=== PATIENT | female | born 1980 | race Two or more races ===

== ENCOUNTER 2017-11-01 15:08 | Emergency (ER) | payer SELFPAY | END 2017-11-01 16:42 | disposition home or self-care (01) | LOC: ER 16:42 | DX: L25.9 Unspecified contact dermatitis, unspecified cause (principal); Z88.6 Allergy status to analgesic agent | CPT/HCPCS: 99283 ==

== ENCOUNTER 2018-05-15 18:32 | Emergency (ER) | payer SELFPAY ==
[~2018-05-15] VITALS: Ht 188 cm; Wt 73.9 kg
[~2018-05-15 18:32] MED LIST: DIPH25CA58 PO; FAMO20TA5 PO; PRED-220 PO
[2018-05-15 18:50] VITALS: BP 130/60
[2018-05-15 19:13] LABS: BILIRUBIN,URINE NEGATIVE (NEG); CLARITY,URINE CLOUDY; COLOR,URINE YELLOW; NITRITE,URINE NEGATIVE (NEG); PROTEIN,URINE NEGATIVE (NEG-TRACE)
[2018-05-15 19:19] LABS: U PREG PATIENT NEGATIVE (NEG)
[2018-05-15 19:27] LABS: BACTERIA,URINE MODERATE /HPF (0-FEW); RBC,URINE 0 /HPF (0-2); SQUAMOUS EPITHELIAL CELL,UR MANY /LPF; WBC,URINE >40 /HPF (0-4)
--- NOTE | 2018-05-15 19:59 | PHYS DOC ---
Past Medical History Past Medical History: No Pertinent History Past Surgical History: No Surgical History Alcohol Use: None Drug Use: None Adult General Chief Complaint Chief Complaint: BACK PAIN - NO INJURY HPI HPI Patient is a 38 year old female who presents with upper back pain that started Friday as well as a cough and nasal congestion. She states she took some Tylenol for pain. She states that her back hurts with movement or taking deep breaths. Patient denies a fever. Patient states also her mid chest feels tight and painful but it's worse with coughing. Patient rates her pain an 8 out of 10. Patient states she also has throat pain and some ear pressure bilaterally. All the symptoms began on Friday. Patient states that when she takes a deep breath that she feels the chart pain in her chest but she has not had any nausea or vomiting. She is alert and oriented does not currently feel any dizziness or shortness of breath. Review of Systems Review of Systems Constitutional: Denies fever or chills [] Eyes: Denies change in visual acuity, redness, or eye pain [] HENT: Denies nasal congestion or sore throat [] Respiratory: cough. Denies shortness of breath [] Cardiovascular: Mid chest pain that is reproducible with movement and cough GI: Denies abdominal pain, nausea, vomiting, bloody stools or diarrhea [] : Denies dysuria or hematuria [] Musculoskeletal: Upper back pain. Denies joint pain [] Integument: Denies rash or skin lesions [] Neurologic: Denies headache, focal weakness or sensory changes [] All other systems were reviewed and found to be within normal limits, except as documented in this note. Allergies Allergies Allergies Coded Allergies Type Severity Reaction Last Updated Verified acetaminophen Allergy Intermediate VOMIT AND DIZZY 02/27/16 Yes Physical Exam Physical Exam Constitutional: Well developed, well nourished, no acute distress, non-toxic appearance. [] HENT: Normocephalic, atraumatic, bilateral external ears normal, oropharynx moist, no oral exudates, nose normal. [] Eyes: PERRLA, EOMI, conjunctiva normal, no discharge. [] Neck: Normal range of motion, no tenderness, supple, no stridor. [] Cardiovascular:Heart rate regular rhythm, no murmur [] Lungs & Thorax: Bilateral breath sounds clear to auscultation [] Abdomen: Bowel sounds normal, soft, lower mid abdominal tenderness, no masses, no pulsatile masses. [] Skin: Warm, dry, no erythema, no rash. [] Back: Upper back tenderness, or bilateral CVA tenderness. [] Extremities: No tenderness, no cyanosis, no clubbing, ROM intact, no edema. [] Neurologic: Alert and oriented X 3, normal motor function, normal sensory function, no focal deficits noted. [] Psychologic: Affect normal, judgement normal, mood normal. [] Current Patient Data Vital Signs Vital Signs Date Time Temp Pulse Resp B/P (MAP) Pulse Ox O2 Delivery O2 Flow Rate FiO2 05/15/18 18:50 97.9 89 18 130/60 (83) 96 Room Air 97.9 Lab Values Laboratory Tests Test 05/15/18 18:55 Urine Collection Type Clean catch Urine Color Yellow Urine Clarity Cloudy Urine pH 6.0 Urine Specific [place] 1.020 Urine Protein Negative mg/dL (NEG-TRACE) Urine Glucose (UA) Negative mg/dL (NEG) Urine Ketones (Stick) Negative mg/dL (NEG) Urine Blood Trace (NEG) Urine Nitrite Negative (NEG) Urine Bilirubin Negative (NEG) Urine Urobilinogen Dipstick 1.0 mg/dL (0.2 mg/dL) Urine Leukocyte Esterase Moderate (NEG) Urine RBC 0 /HPF (0-2) Urine WBC >40 /HPF (0-4) Urine Squamous Epithelial Cells Many /LPF Urine Bacteria Moderate /HPF (0-FEW) Urine Mucus Mod /LPF Urine Test Negative (NEG) EKG EKG [] Radiology/Procedures Radiology/Procedures Chest x-ray Impressions: NO ACUTE FINDINGS Course & Med Decision Making Course & Med Decision Making Patient is a 38 year old female who presents with upper back pain that started Friday as well as a cough and nasal congestion. She states she took some Tylenol for pain. She states that her back hurts with movement or taking deep breaths. Patient denies a fever. Patient states also her mid chest feels tight and painful but it's worse with coughing. Patient rates her pain an 8 out of 10. Patient states she also has throat pain and some ear pressure bilaterally. All the symptoms began on Friday. Patient states that when she takes a deep breath that she feels the chart pain in her chest but she has not had any nausea or vomiting. She is alert and oriented does not currently feel any dizziness or shortness of breath. Patient denies any urinary symptoms. Patient has lower abdominal mid tenderness with palpation but otherwise her abdomen is soft and nontender and there is no masses felt. Patient does have CVA tenderness bilaterally. Her throat is red but no exudates. Rapid strep is negative. Lungs are clear to auscultation in all lobes. Bilateral ear tympanic are pearly white in color. There are no palpable lymph nodes. The pain in her chest is reproduced with deep breaths and movement of her upper body. Patient urine looks to be infected. She will be treated with an antibiotic. She is no known drug allergies and denies smoking or drinking or using drugs. Patient states she takes no meds daily and her only past history is . And is pink warm and dry. Mucous membranes are moist. PERRLA. Patient denies a headache or any numbness or tingling. Denies shortness of air. Vital signs are 130/60, 18 respirations, 89 heart rate, 97.9 temperature, 96% on room air. Chest x-ray shows no acute findings and was read by Dr Lyons. Patient should follow-up with her doctor on Friday. Patient can also take [id number] cold medication to help with her cough and her cold symptoms. I will give her dose of dexamethasone here in the ED. [] Dragon Disclaimer Dragon Disclaimer This electronic medical record was generated, in whole or in part, using a voice recognition dictation system. Departure Departure Impression: Primary Impression: UTI (urinary tract infection) Additional Impression: Cough Disposition: HOME, SELF-CARE Condition: STABLE Referrals: NO PCP (PCP) Patient Instructions: Muscle Strain, Urinary Tract Infection Additional Instructions: FOLLOW UP WITH YOUR PRIMARY CARE DOCTOR. TAKE MEDICATIONS PRESCRIBED. Scripts Sulfamethoxazole/Trimethoprim (BACTRIM DS TABLET) 1 Each Tablet 1 TAB PO BID, #14 TAB Prov: LOLIS TRUJILLO APRN 05/15/18 Problem Qualifiers Primary Impression: UTI (urinary tract infection) Urinary tract infection type: site unspecified Hematuria presence: with hematuria Qualified Codes: N39.0 - Urinary tract infection, site not specified ; R31.9 - Hematuria, unspecified LOLIS TRUJILLO APRN May 15, 2018 19:59
[2018-05-15] MEDS ORDERED: SULF1TAB24 PO (20:02)
[2018-05-15] MEDS: DEXAMETHASONE 4 MG TABLET PO ONE (20:22)
--- NOTE | 2018-05-15 23:41 | RAD ---
PROCEDURE: CHEST PA LATERAL CLINICAL INDICATION: ER PATIENT. ATRAUMATIC CHEST PAIN, ANTERIOR AND POSTERIOR X3 DAYS. SHORTNESS OF AIR, DIZZINESS. NO PRIORS COMPARISON: None FINDINGS: Heart is normal in size. Couple of nodular opacities are seen in the left midlung zone and left lower lung zone. Otherwise, lungs are clear. No pneumothorax or effusion. Visualized bony thorax within normal limits. IMPRESSION: Couple of nodular opacities in the left lung likely calcified granulomas. Follow-up chest x-ray 6 months recommended. No acute pulmonary process. Electronically signed by: Nino Jordan DO (05/15/2018 11:38 PM) [facility]
== END 2018-05-15 20:26 ==
LOC: ER 18:32
DX: N39.0 Urinary tract infection, site not specified (principal); M54.6 Pain in thoracic spine; R05 Cough; R07.89 Other chest pain; R09.81 Nasal congestion; R10.30 Lower abdominal pain, unspecified; Z88.6 Allergy status to analgesic agent
CPT/HCPCS: 71046; 81001; 81025; 87880; 99285; J8540; 87070; 87086

== ENCOUNTER 2018-12-24 13:01 | Emergency (ER) | payer SELFPAY ==
[~2018-12-24] VITALS: Ht 157.5 cm; Wt 118.8 kg
[~2018-12-24 13:01] MED LIST changes: +SULF1TAB24 PO
[2018-12-24] MEDS ORDERED: FAMOTIDINE 20 MG/2 ML VIAL IVP ONE (13:15)
[2018-12-24] MEDS ORDERED: ASPIRIN 325 MG TABLET PO ONE (13:15)
[2018-12-24 13:31] LABS: BASO # 0.1 x10^3/uL (0.0-0.2); BASO % 1 % (0-3); EOS # 0.1 x10^3/uL (0.0-0.7); EOS % 2 % (0-3); HEMATOCRIT 41.5 % (36.0-47.0); HEMOGLOBIN 13.8 g/dL (12.0-15.5); LYMPH # 2.1 x10^3/uL (1.0-4.8); LYMPH % 26 % (24-48); MEAN CORPUSCULAR HEMOGLOBIN 26 pg (25-35); MEAN CORPUSCULAR HGB CONC 33 g/dL (31-37); MEAN CORPUSCULAR VOLUME 79 fL (79-100); MONO # 0.4 x10^3/uL (0.0-1.1); MONO % 5 % (0-9); NEUT # 5.3 x10^3uL (1.8-7.7); NEUT % 67 % (31-73); PLATELET COUNT 203 x10^3/uL (140-400); RED BLOOD COUNT 5.27 x10^6/uL (3.50-5.40); RED CELL DISTRIBUTION WIDTH 13.6 % (11.5-14.5)
--- NOTE | 2018-12-24 13:45 | RAD ---
PORTABLE CHEST 1V History: Chest pain. Comparison with May 15, 2018. Heart size is not enlarged. No evidence of pneumothorax, pleural effusion or infiltrate. The bones appear intact. Left upper lobe nodule described previously is similar. The left lower lung nodule is not as well seen on today's study. IMPRESSION: No evidence of acute infiltrate. Electronically signed by: Chaparro Moctezuma MD (12/24/2018 1:42 PM) [id number]
[2018-12-24 13:48] LABS: CALCIUM 9.2 mg/dL (8.5-10.1); CREATININE 0.6 mg/dL (0.6-1.0); GFR 113.1; POTASSIUM 3.6 mmol/L (3.5-5.1)
[2018-12-24 13:53] LABS: ALBUMIN 3.7 g/dL (3.4-5.0); ALBUMIN/GLOBULIN RATIO 0.9 (1.0-1.7); MAGNESIUM 1.8 mg/dL (1.8-2.4); TOTAL BILIRUBIN 0.3 mg/dL (0.2-1.0); TOTAL PROTEIN 7.7 g/dL (6.4-8.2)
--- NOTE | 2018-12-24 14:06 | EKG ---
[facility] [address] [place] [address] Test Date: 2018-12-24 Test Time: 13:09:27 Pat Name: JIMENA DOMINGUEZ Department: Room: Gender: F Guest Services: : 1980 Requested By: [facility] Order Number: [id number] Reading MD: Measurements Intervals [place] Rate: 73 P: 29 [place]: 146 QRS: 16 QRSD: 80 T: 15 QT: 372 QTc: 413 Interpretive Statements SINUS RHYTHM NORMAL ECG RI6.01 No previous ECG available for comparison
[2018-12-24 14:29] LABS: BILIRUBIN,URINE NEGATIVE (NEG); CLARITY,URINE CLEAR; COLOR,URINE YELLOW; NITRITE,URINE NEGATIVE (NEG); PROTEIN,URINE NEGATIVE (NEG-TRACE); UROBILINOGEN,URINE 0.2 mg/dL (0.2 mg/dL)
[2018-12-24 14:36] LABS: AMPHETAMINE/METHAMPHETAMINE NEG (NEG); BARBITURATES NEG (NEG); BENZODIAZEPINES NEG (NEG); CANNABINOIDS NEG (NEG); COCAINE NEG (NEG); METHADONE NEG (NEG); OPIATES NEG (NEG); PHENCYCLIDINE NEG (NEG)
[2018-12-24 14:46] LABS: SQUAMOUS EPITHELIAL CELL,UR FEW /LPF
[2018-12-24 14:47] LABS: BACTERIA,URINE MANY /HPF (0-FEW); RBC,URINE OCC /HPF (0-2)
--- NOTE | 2018-12-24 15:05 | PHYS DOC ---
Past Medical History Past Medical History: No Pertinent History Past Surgical History: Alcohol Use: None Drug Use: None Adult General Chief Complaint Chief Complaint: CHEST PAIN HPI HPI Patient is a 38 year old female with no significant medical history who presents to the ED today complaining of a sharp 8 out of 10 substernal intermittent chest pain nonradiating in nature that has been going on intermitte ntly for one week. Patient states his pain is worse when she is at work. She states at work she has to lift heavy items which cause more pain. She states she started a new job recently and today she could not go to work. Denies anything specifically alleviating her pain. Denies any nausea vomiting. Denies any use of control. Denies any unilateral leg pain. Denies any personal family history of PEs or DVTs. Denies any recent surgery or hospitalizations. Review of Systems Review of Systems Constitutional: Denies fever or chills [] Eyes: Denies change in visual acuity, redness, or eye pain [] HENT: Denies nasal congestion or sore throat [] Respiratory: Denies cough or shortness of breath [] Cardiovascular: Reports chest pain. GI: Denies abdominal pain, nausea, vomiting, bloody stools or diarrhea [] : Denies dysuria or hematuria [] Musculoskeletal: Denies back pain or joint pain [] Integument: Denies rash or skin lesions [] Neurologic: Denies headache, focal weakness or sensory changes [] All other systems were reviewed and found to be within normal limits, except as documented in this note. Current Medications Current Medications Current Medications Medications (Trade) Dose Ordered Sig/[facility] Start Time Stop Time Status Last Admin Dose Admin Aspirin (Bjorn Aspirin) 325 mg 1X ONCE 12/24/18 13:15 12/24/18 13:16 DC 12/24/18 13:27 325 MG Famotidine (Pepcid Vial) 20 mg 1X ONCE 12/24/18 13:15 12/24/18 13:16 DC 12/24/18 13:28 20 MG Allergies Allergies Allergies Coded Allergies Type Severity Reaction Last Updated Verified No Known Drug Allergies 12/24/18 No Physical Exam Physical Exam Constitutional: Well developed, well nourished, no acute distress, non-toxic appearance. [] HENT: Normocephalic, atraumatic, bilateral external ears normal, oropharynx moist, no oral exudates, nose normal. [] Eyes: PERRLA, EOMI, conjunctiva normal, no discharge. [] Neck: Normal range of motion, no tenderness, supple, no stridor. [] Cardiovascular:Heart rate regular rhythm, no murmur [] Lungs & Thorax: Bilateral breath sounds clear to auscultation [] Abdomen: Bowel sounds normal, soft, no tenderness, no masses, no pulsatile masses. [] Skin: Warm, dry, no erythema, no rash. [] Back: No tenderness, no CVA tenderness. [] Extremities: No tenderness, no cyanosis, no clubbing, ROM intact, no edema. [] Neurologic: Alert and oriented X 3, normal motor function, normal sensory function, no focal deficits noted. [] Psychologic: Affect normal, judgement normal, mood normal. [] Current Patient Data Vital Signs Vital Signs Date Time Temp Pulse Resp B/P (MAP) Pulse Ox O2 Delivery O2 Flow Rate FiO2 12/24/18 14:11 68 131/73 (92) 95 Room Air 12/24/18 13:11 17 12/24/18 13:03 98.3 98.3 Lab Values Laboratory Tests Test 12/24/18 13:18 12/24/18 14:23 White Blood Count 8.0 x10^3/uL (4.0-11.0) Red Blood Count 5.27 x10^6/uL (3.50-5.40) Hemoglobin 13.8 g/dL (12.0-15.5) Hematocrit 41.5 % (36.0-47.0) Mean Corpuscular Volume 79 fL (79-100) Mean Corpuscular Hemoglobin 26 pg (25-35) Mean Corpuscular Hemoglobin Concent 33 g/dL (31-37) Red Cell Distribution Width 13.6 % (11.5-14.5) Platelet Count 203 x10^3/uL (140-400) Neutrophils (%) (Auto) 67 % (31-73) Lymphocytes (%) (Auto) 26 % (24-48) Monocytes (%) (Auto) 5 % (0-9) Eosinophils (%) (Auto) 2 % (0-3) Basophils (%) (Auto) 1 % (0-3) Neutrophils # (Auto) 5.3 x10^3uL (1.8-7.7) Lymphocytes # (Auto) 2.1 x10^3/uL (1.0-4.8) Monocytes # (Auto) 0.4 x10^3/uL (0.0-1.1) Eosinophils # (Auto) 0.1 x10^3/uL (0.0-0.7) Basophils # (Auto) 0.1 x10^3/uL (0.0-0.2) Sodium Level 139 mmol/L (136-145) Potassium Level 3.6 mmol/L (3.5-5.1) Chloride Level 104 mmol/L (98-107) Carbon Dioxide Level 24 mmol/L (21-32) Anion Gap 11 (6-14) Blood Urea Nitrogen 8 mg/dL (7-20) Creatinine 0.6 mg/dL (0.6-1.0) Estimated GFR (Cockcroft-Gault) 113.1 BUN/Creatinine Ratio 13 (6-20) Glucose Level 123 mg/dL (70-99) H Calcium Level 9.2 mg/dL (8.5-10.1) Magnesium Level 1.8 mg/dL (1.8-2.4) Total Bilirubin 0.3 mg/dL (0.2-1.0) Aspartate Amino Transferase (AST) 20 U/L (15-37) Alanine Aminotransferase (ALT) 31 U/L (14-59) Alkaline Phosphatase 48 U/L (46-116) Creatine Kinase 99 U/L (26-192) Creatine Kinase MB (Mass) 1.5 ng/mL (0.0-3.6) Creatine Kinase MB Relative Index 1.5 % (0-4) Troponin I Quantitative < 0.017 ng/mL (0.000-0.055) TQ-Igb-V-Type Natriuretic Peptide 65 pg/mL (0-124) Total Protein 7.7 g/dL (6.4-8.2) Albumin 3.7 g/dL (3.4-5.0) Albumin/Globulin Ratio 0.9 (1.0-1.7) L Thyroid Stimulating Hormone (TSH) 1.056 uIU/mL (0.358-3.74) Urine Collection Type Unknown Urine Color Yellow Urine Clarity Clear Urine pH 7.0 Urine Specific [place] <=1.005 Urine Protein Negative mg/dL (NEG-TRACE) Urine Glucose (UA) Negative mg/dL (NEG) Urine Ketones (Stick) Negative mg/dL (NEG) Urine Blood Small (NEG) Urine Nitrite Negative (NEG) Urine Bilirubin Negative (NEG) Urine Urobilinogen Dipstick 0.2 mg/dL (0.2 mg/dL) Urine Leukocyte Esterase Negative (NEG) Urine RBC Occ /HPF (0-2) Urine WBC 1-4 /HPF (0-4) Urine Squamous Epithelial Cells Few /LPF Urine Bacteria Many /HPF (0-FEW) Urine Opiates Screen Neg (NEG) Urine Methadone Screen Neg (NEG) Urine Barbiturates Neg (NEG) Urine Phencyclidine Screen Neg (NEG) Urine Amphetamine/Methamphetamine Neg (NEG) Urine Benzodiazepines Screen Neg (NEG) Urine Cocaine Screen Neg (NEG) Urine Cannabinoids Screen Neg (NEG) Urine Ethyl Alcohol Neg (NEG) Laboratory Tests 12/24/18 13:18 Laboratory Tests 12/24/18 13:18 EKG EKG 13:[address] Deleon sinus rhythm heart rate 73 no STEMI Radiology/Procedures Radiology/Procedures []PROCEDURE: PORTABLE CHEST 1V PORTABLE CHEST 1V History: Chest pain. Comparison with May 15, 2018. Heart size is not enlarged. No evidence of pneumothorax, pleural effusion or infiltrate. The bones appear intact. Left upper lobe nodule described previously is similar. The left lower lung nodule is not as well seen on today's study. IMPRESSION: No evidence of acute infiltrate. Electronically signed by: Phoenix Moctezuma MD (12/24/2018 1:42 PM) [id number] DICTATED and SIGNED BY: PHOENIX MOCTEZUMA MD DATE: 12/24/18 1342 Course & Med Decision Making Course & Med Decision Making Pertinent Labs and Imaging studies reviewed. (See chart for details) This is a 38-year-old female patient presenting to the ED today complaining of substernal chest pain intermittently for week. Heart score 0 Chest x-ray is negative, EKG was negative, patient's labs including troponin are negative. She was discharged to home. Provided instructions to follow-up with PCP as well as machine brusher. Provided return precautions and discharged in stable condition. Dragon Disclaimer Dragon Disclaimer This electronic medical record was generated, in whole or in part, using a voice recognition dictation system. Departure Departure Impression: Primary Impression: Chest pain Disposition: HOME, SELF-CARE Condition: STABLE Referrals: NO PCP (PCP) follow up in 1 week Patient Instructions: Chest Pain (Nonspecific), [id number] Additional Instructions: You were evaluated in the emergency for chest pain. Your work up in the emergency room was negative. We provided you a machine brusher, follow-up with them as an outpatient. Take [id number] pain relievers as needed. Return to the emergency room at any point symptoms worsen Problem Qualifiers Primary Impression: Chest pain Chest pain type: unspecified Qualified Codes: R07.9 - Chest pain, unspecified [facility] Dec 24, 2018 15:05
[2018-12-24 15:11] VITALS: BP 133/83
== END 2018-12-24 15:24 | disposition home or self-care (01) ==
LOC: ER 13:01
DX: R07.89 Other chest pain (principal); Z98.890 Other specified postprocedural states; Z79.82 Long term (current) use of aspirin
CPT/HCPCS: 36415; 71045; 80053; 80307; 81001; 82553; 83735; 83880; 84443; 84484; 85025; 93005; 96374; 99285; J3490

== ENCOUNTER 2019-03-23 18:51 | Emergency (ER) | payer SELFPAY ==
[~2019-03-23] VITALS: Ht 157.5 cm; Wt 104.3 kg
[2019-03-23] MEDS ORDERED: ONDANSETRON PF 4 MG/2 ML VIAL. IV ONE (20:45)
[2019-03-23] MEDS ORDERED: KETOROLAC 15 MG/ML VIAL. IV ONE (20:45)
[2019-03-23 20:48] VITALS: BP 134/75
[2019-03-23 21:20] LABS: BASO # 0.1 x10^3/uL (0.0-0.2); BASO % 1 % (0-3); EOS # 0.1 x10^3/uL (0.0-0.7); EOS % 1 % (0-3); LYMPH # 2.6 x10^3/uL (1.0-4.8); LYMPH % 27 % (24-48); MEAN CORPUSCULAR HEMOGLOBIN 26 pg (25-35); MEAN CORPUSCULAR HGB CONC 33 g/dL (31-37); MEAN CORPUSCULAR VOLUME 78 fL (79-100); MONO # 0.3 x10^3/uL (0.0-1.1); MONO % 4 % (0-9); NEUT # 6.4 x10^3/uL (1.8-7.7); NEUT % 67 % (31-73); PLATELET COUNT 215 x10^3/uL (140-400); RED BLOOD COUNT 5.38 x10^6/uL (3.50-5.40); RED CELL DISTRIBUTION WIDTH 13.8 % (11.5-14.5); WHITE BLOOD COUNT 9.6 x10^3/uL (4.0-11.0)
[2019-03-23 21:38] LABS: CALCIUM 9.1 mg/dL (8.5-10.1); CREATININE 0.7 mg/dL (0.6-1.0); GFR 94.2
[2019-03-23 21:43] LABS: TOTAL BILIRUBIN 0.2 mg/dL (0.2-1.0); TOTAL PROTEIN 8.2 g/dL (6.4-8.2)
[2019-03-23 22:46] LABS: BILIRUBIN,URINE NEGATIVE (NEG); CLARITY,URINE CLEAR; COLOR,URINE YELLOW; NITRITE,URINE POSITIVE (NEG); PROTEIN,URINE NEGATIVE (NEG-TRACE); UROBILINOGEN,URINE 0.2 mg/dL (0.2 mg/dL)
[2019-03-23 22:53] LABS: BACTERIA,URINE MANY /HPF (0-FEW); SQUAMOUS EPITHELIAL CELL,UR OCC /LPF
--- NOTE | 2019-03-23 22:53 | RAD ---
STUDY: 1. Limited abdominal ultrasound 2. Complete pelvic ultrasound INDICATION: Right upper quadrant and left lower quadrant pain. COMPARISON: None. TECHNIQUE: Real-time sonographic evaluation of the right upper quadrant as well as the pelvis with both rivera scale and Doppler imaging. Both transabdominal and transvaginal technique was utilized at the pelvis. FINDINGS: LIMITED ABDOMINAL ULTRASOUND: The pancreas is poorly visualized. Somewhat increased hepatic echotexture as can be seen with hepatic steatosis. No focal parenchymal abnormality. The liver measures approximately 16 cm in length. Normal gallbladder wall thickness measuring at 3 mm. No gallstones or layering sludge visualized. No pericholecystic free fluid. Normal caliber of the common bile duct measuring 0.5 cm. The main portal vein is patent with hepatopedal flow. The right kidney measures 11.5 cm in length with normal cortical thickness and echogenicity. No hydronephrosis. COMPLETE PELVIC ULTRASOUND: The right ovary measures 2.6 x 1.5 x 1.4 cm. The left ovary measures 2.8 x 2.3 x 2.2 cm. Doppler flow is maintained to both ovaries. Simple appearing left ovarian cyst measures 1.7 x 1.7 x 1.9 cm. The uterus measures 10.1 x 4.9 x 4.2 cm. The endometrium measures 0.8 cm in thickness. No free fluid seen within the pelvis. IMPRESSION: Right upper quadrant sonogram: 1. No acute abnormality. The gallbladder is unremarkable. 2. Findings as can be seen with hepatic steatosis. Complete pelvic sonogram: 1. Left ovarian simple cyst measuring 1.7 x 1.7 x 1.9 cm. No ovarian torsion. 2. Unremarkable appearance of the uterus. The endometrium is within normal limits for thickness given age. Electronically signed by: BIMAL FLORES MD (03/23/2019 10:50 PM) [facility]
--- NOTE | 2019-03-23 23:20 | PHYS DOC ---
Past Medical History Past Medical History: UTI Past Surgical History: Additional Past Surgical Histo: EXPLORATORY LAP Alcohol Use: None Drug Use: None Adult General Chief Complaint Chief Complaint: ABDOMINAL PAIN HPI HPI Patient is a 39 year old female withmedical history who presents to the ED today complaining of 10 out of 10 left lower quadrant abdominal pain as well as right upper quadrant abdominal pain for couple days. Patient denies any nausea, vomiting, diarrhea. She states her left lower quadrant abdominal pain radiates to her back. Denies any chance she is constipated. Denies any fever, denies any chance she is . Denies any exacerbating or relieving factors to her symptoms. Review of Systems Review of Systems Constitutional: Denies fever or chills [] Eyes: Denies change in visual acuity, redness, or eye pain [] HENT: Denies nasal congestion or sore throat [] Respiratory: Denies cough or shortness of breath [] Cardiovascular: No additional information not addressed in HPI [] GI: Reports left lower quadrant abdominal pain and right upper quadrant abdominal pain, denies nausea, vomiting, bloody stools or diarrhea [] : Denies dysuria or hematuria [] Musculoskeletal: Denies back pain or joint pain [] Integument: Denies rash or skin lesions [] Neurologic: Denies headache, focal weakness or sensory changes [] All other systems were reviewed and found to be within normal limits, except as documented in this note. Current Medications Current Medications Current Medications Medications (Trade) Dose Ordered Sig/Joao Start Time Stop Time Status Last Admin Dose Admin Ketorolac Tromethamine (Toradol 15mg Vial) 15 mg 1X ONCE 03/23/19 20:45 03/23/19 20:46 DC 03/23/19 21:52 15 MG Ondansetron HCl (Zofran) 4 mg 1X ONCE 03/23/19 20:45 03/23/19 20:46 DC 03/23/19 21:52 4 MG Allergies Allergies Allergies Coded Allergies Type Severity Reaction Last Updated Verified No Known Drug Allergies 12/24/18 No Physical Exam Physical Exam Constitutional: Well developed, well nourished, no acute distress, non-toxic appearance. [] HENT: Normocephalic, atraumatic, bilateral external ears normal, oropharynx moist, no oral exudates, nose normal. [] Eyes: PERRLA, EOMI, conjunctiva normal, no discharge. [] Neck: Normal range of motion, no tenderness, supple, no stridor. [] Cardiovascular:Heart rate regular rhythm, no murmur [] Lungs & Thorax: Bilateral breath sounds clear to auscultation [] Abdomen: Bowel sounds normal, soft, no tenderness, no masses, no pulsatile masses. [] Skin: Warm, dry, no erythema, no rash. [] Back: No tenderness, no CVA tenderness. [] Extremities: No tenderness, no cyanosis, no clubbing, ROM intact, no edema. [] Neurologic: Alert and oriented X 3, normal motor function, normal sensory function, no focal deficits noted. [] Psychologic: Affect normal, judgement normal, mood normal. [] Current Patient Data Vital Signs Vital Signs Date Time Temp Pulse Resp B/P (MAP) Pulse Ox O2 Delivery O2 Flow Rate FiO2 03/23/19 20:48 65 134/75 (94) 99 Room Air 03/23/19 20:12 97.5 16 97.5 Lab Values Laboratory Tests Test 03/23/19 21:12 03/23/19 22:15 White Blood Count 9.6 x10^3/uL (4.0-11.0) Red Blood Count 5.38 x10^6/uL (3.50-5.40) Hemoglobin 14.0 g/dL (12.0-15.5) Hematocrit 42.0 % (36.0-47.0) Mean Corpuscular Volume 78 fL (79-100) L Mean Corpuscular Hemoglobin 26 pg (25-35) Mean Corpuscular Hemoglobin Concent 33 g/dL (31-37) Red Cell Distribution Width 13.8 % (11.5-14.5) Platelet Count 215 x10^3/uL (140-400) Neutrophils (%) (Auto) 67 % (31-73) Lymphocytes (%) (Auto) 27 % (24-48) Monocytes (%) (Auto) 4 % (0-9) Eosinophils (%) (Auto) 1 % (0-3) Basophils (%) (Auto) 1 % (0-3) Neutrophils # (Auto) 6.4 x10^3/uL (1.8-7.7) Lymphocytes # (Auto) 2.6 x10^3/uL (1.0-4.8) Monocytes # (Auto) 0.3 x10^3/uL (0.0-1.1) Eosinophils # (Auto) 0.1 x10^3/uL (0.0-0.7) Basophils # (Auto) 0.1 x10^3/uL (0.0-0.2) Sodium Level 140 mmol/L (136-145) Potassium Level 4.0 mmol/L (3.5-5.1) Chloride Level 104 mmol/L (98-107) Carbon Dioxide Level 25 mmol/L (21-32) Anion Gap 11 (6-14) Blood Urea Nitrogen 7 mg/dL (7-20) Creatinine 0.7 mg/dL (0.6-1.0) Estimated GFR (Cockcroft-Gault) 94.2 BUN/Creatinine Ratio 10 (6-20) Glucose Level 99 mg/dL (70-99) Calcium Level 9.1 mg/dL (8.5-10.1) Total Bilirubin 0.2 mg/dL (0.2-1.0) Aspartate Amino Transferase (AST) 31 U/L (15-37) Alanine Aminotransferase (ALT) 34 U/L (14-59) Alkaline Phosphatase 58 U/L (46-116) Total Protein 8.2 g/dL (6.4-8.2) Albumin 4.0 g/dL (3.4-5.0) Albumin/Globulin Ratio 1.0 (1.0-1.7) Lipase 169 U/L (73-393) Urine Color Yellow Urine Clarity Clear Urine pH 6.0 Urine Specific [place] 1.015 Urine Protein Negative mg/dL (NEG-TRACE) Urine Glucose (UA) Negative mg/dL (NEG) Urine Ketones (Stick) Negative mg/dL (NEG) Urine Blood Trace (NEG) Urine Nitrite Positive (NEG) Urine Bilirubin Negative (NEG) Urine Urobilinogen Dipstick 0.2 mg/dL (0.2 mg/dL) Urine Leukocyte Esterase Negative (NEG) Urine RBC 1-2 /HPF (0-2) Urine WBC 5-10 /HPF (0-4) Urine Squamous Epithelial Cells Occ /LPF Urine Bacteria Many /HPF (0-FEW) Urine Mucus Mod /LPF Laboratory Tests 03/23/19 21:12 Laboratory Tests 03/23/19 21:12 EKG EKG [] Radiology/Procedures Radiology/Procedures []PROCEDURE: PELVIS COMPLETE STUDY: 1. Limited abdominal ultrasound 2. Complete pelvic ultrasound INDICATION: Right upper quadrant and left lower quadrant pain. COMPARISON: None. TECHNIQUE: Real-time sonographic evaluation of the right upper quadrant as well as the pelvis with both rivera scale and Doppler imaging. Both transabdominal and transvaginal technique was utilized at the pelvis. FINDINGS: LIMITED ABDOMINAL ULTRASOUND: The pancreas is poorly visualized. Somewhat increased hepatic echotexture as can be seen with hepatic steatosis. No focal parenchymal abnormality. The liver measures approximately 16 cm in length. Normal gallbladder wall thickness measuring at 3 mm. No gallstones or layering sludge visualized. No pericholecystic free fluid. Normal caliber of the common bile duct measuring 0.5 cm. The main portal vein is patent with hepatopedal flow. The right kidney measures 11.5 cm in length with normal cortical thickness and echogenicity. No hydronephrosis. COMPLETE PELVIC ULTRASOUND: The right ovary measures 2.6 x 1.5 x 1.4 cm. The left ovary measures 2.8 x 2.3 x 2.2 cm. Doppler flow is maintained to both ovaries. Simple appearing left ovarian cyst measures 1.7 x 1.7 x 1.9 cm. The uterus measures 10.1 x 4.9 x 4.2 cm. The endometrium measures 0.8 cm in thickness. No free fluid seen within the pelvis. IMPRESSION: Right upper quadrant sonogram: 1. No acute abnormality. The gallbladder is unremarkable. 2. Findings as can be seen with hepatic steatosis. Complete pelvic sonogram: 1. Left ovarian simple cyst measuring 1.7 x 1.7 x 1.9 cm. No ovarian torsion. 2. Unremarkable appearance of the uterus. The endometrium is within normal limits for thickness given age. Electronically signed by: BIMAL FLORES MD (03/23/2019 10:50 PM) [facility] DICTATED and SIGNED BY: BIMAL FLORES MD DATE: 03/23/19 3129 Course & Med Decision Making Course & Med Decision Making Pertinent Labs and Imaging studies reviewed. (See chart for details) This is a 39-year-old female patient presented to the ED today with left lower quadrant abdominal pain as well as right upper quadrant abdominal pain. Patient's labs are negative for any acute findings, urine negative for infection. Right upper quadrant ultrasound was negative for any acute findings. Pelvic ultrasound noted for left ovarian cyst. Patient was provided an BRAIN SURGEON for follow-up. OTC medications recommended for her pain. Dragon Disclaimer Dragon Disclaimer This electronic medical record was generated, in whole or in part, using a voice recognition dictation system. Departure Departure Impression: Primary Impression: Left upper quadrant pain Additional Impressions: Right upper quadrant pain Ovarian cyst Disposition: HOME, SELF-CARE Condition: STABLE Referrals: NO PCP (PCP) NOBLE NASH MD Follow up in one week Patient Instructions: Abdominal Pain, [id number] Additional Instructions: You were evaluated in the emergency room for left lower quadrant abdominal pain as well as right upper quadrant abdominal pain. You have a left ovarian cyst. Follow-up with the BRAIN SURGEON provided in 1-2 weeks. You can take [id number] pain relievers as needed. Problem Qualifiers BEVERLY FOUNTAIN APRN Mar 23, 2019 23:20
--- NOTE | 2019-03-29 16:45 | HP ---
ADMIT DATE: 03/23/2019 CHIEF AND HISTORY OF PRESENT ILLNESS: This patient is a 39-year-old Thai lady who is a 6, para 5, was seen in the Emergency Room because of acute pelvic pain. She has had her last delivery by at [facility] 3 years ago and she has got 2 girls at home. She does not have any diabetes, any high blood pressure. Remained problem is pelvic pain for the last one month and she is not able to tolerate. Her last menstrual period was 03/06/2019. Her Emergency Room visit was 03/23/2019 and now she comes to the office with the same persisting pelvic pain, more so on the left side. ALLERGIES: None known. PAST MEDICAL HISTORY: Reveals no history of alcohol, not on any drugs. FAMILY HISTORY: Reveals her mother has diabetes as well as high blood pressure. REVIEW OF SYSTEMS: Essentially negative. PHYSICAL EXAMINATION: VITAL SIGNS: Being stable. She weighs 238 pounds. GENERAL: Reveals the patient is quite obese. HEAD, EYES, EARS, NOSE, THROAT: Within normal limits. LUNGS: Clear. HEART: Sounds regular sinus rhythm. ABDOMEN: Soft. PELVIC: Shows external genitalia being normal. Cervical os is closed. On bimanual exam, uterus feels bulky. There is tenderness in the left lower quadrant. No vaginal bleeding noted at the time of the examination. IMPRESSION: 1. Pelvic pain. 2. Ovarian cyst on the left side, possible pelvic adhesions. PLAN: Laparotomy, possible left side salpingo-oophorectomy. The details of the surgery, the risks and complications including any injury to the bladder or bowel, has been explained to her and the patient is willing for the operation at the present time. NOBLE NASH MD DR: LUCIAN/buzz JOB#: [id number] / [id number]
== END 2019-03-24 00:04 | disposition home or self-care (01) ==
LOC: ER 18:51
DX: N83.202 Unspecified ovarian cyst, left side (principal); Z98.890 Other specified postprocedural states
CPT/HCPCS: 36415; 76705; 76856; 80053; 81001; 83690; 85025; 96374; 96375; 99285; J1885; J2405

== ENCOUNTER 2021-05-13 13:47 | Inpatient (IN) | payer SELFPAY ==
[~2021-05-13] VITALS: Ht 188 cm; Wt 114.1 kg
[2021-05-13 14:18] LABS: BASO # 0.1 x10^3/uL (0.0-0.2); BASO % 1 % (0-3); EOS # 0.2 x10^3/uL (0.0-0.7); EOS % 2 % (0-3); HEMATOCRIT 41.9 % (36.0-47.0); HEMOGLOBIN 13.8 g/dL (12.0-15.5); LYMPH # 2.5 x10^3/uL (1.0-4.8); LYMPH % 29 % (24-48); MEAN CORPUSCULAR HEMOGLOBIN 26 pg (25-35); MEAN CORPUSCULAR HGB CONC 33 g/dL (31-37); MEAN CORPUSCULAR VOLUME 78 fL (79-100); MONO # 0.4 x10^3/uL (0.0-1.1); MONO % 5 % (0-9); NEUT # 5.5 x10^3/uL (1.8-7.7); NEUT % 63 % (31-73); PLATELET COUNT 221 x10^3/uL (140-400); RED BLOOD COUNT 5.37 x10^6/uL (3.50-5.40); RED CELL DISTRIBUTION WIDTH 14.4 % (11.5-14.5); WHITE BLOOD COUNT 8.7 x10^3/uL (4.0-11.0)
[2021-05-13 14:28] LABS: CALCIUM 8.6 mg/dL (8.5-10.1); CREATININE 0.7 mg/dL (0.6-1.0); GFR 93.2; POTASSIUM 4.6 mmol/L (3.5-5.1)
[2021-05-13 14:34] LABS: ALBUMIN 3.8 g/dL (3.4-5.0); TOTAL BILIRUBIN 0.3 mg/dL (0.2-1.0); TOTAL PROTEIN 7.5 g/dL (6.4-8.2)
--- NOTE | 2021-05-13 15:03 | RAD ---
AP chest. HISTORY: Chest pain Portable AP view was taken of the chest. There is a prominent epicardial fat pad along the left heart border. Patient's taken a poor inspiration. There are no acute infiltrates. There is no effusion. IMPRESSION: 1. No acute infiltrates. Electronically signed by: Abdifatah Guzman MD (05/13/2021 3:01 PM) [facility]
--- NOTE | 2021-05-13 15:23 | PHYS DOC ---
Past Medical History Past Medical History: UTI Additional Past Medical Histor: STRESS Past Surgical History: Other Additional Past Surgical Histo: LEFT OVARY REMOVAL Smoking Status: Current Every Day Smoker Additional Information: 1/2 PACK A DAY Alcohol Use: Occasionally Drug Use: None General Adult EDM: Chief Complaint: CHEST PAIN HPI: HPI: Patient is a 41 year old female with history obesity, tobacco use, early family history of UT who presents with substernal chest pressure that is been worse over the past week. States that it is a pressure that radiates towards her back. Gets better with rest, and worse with exertion. Associated with some shortness of breath. No fevers, chills, or cough. Never had similar symptoms in the past. States her mother had a heart attack in her 40s. She does not seek medical care and does not have a primary care provider. Review of Systems: Review of Systems: Constitutional: Denies fever or chills. [] Eyes: Denies change in visual acuity. [] HENT: Denies nasal congestion or sore throat. [] Respiratory: Denies cough. Reports shortness of breath. [] Cardiovascular: Reports chest pain, denies lower extremity edema [] GI: Denies abdominal pain, nausea, vomiting, bloody stools or diarrhea. [] : Denies dysuria. [] Musculoskeletal: Denies back pain or joint pain. [] Integument: Denies rash. [] Neurologic: Denies headache, focal weakness or sensory changes. [] Endocrine: Denies polyuria or polydipsia. [] Lymphatic: Denies swollen glands. [] Psychiatric: Denies depression or anxiety. [] Heart Score: C/O Chest Pain: Yes HEART Score for Chest Pain: HEART Score for Chest Pain Response (Comments) Value History Highly Suspicious 2 ECG Normal 0 Age < 45 0 Risk Factors >3 Risk Factors or Hx CAD 2 Troponin < Normal Limit 0 Total 4 Risk Factors: Risk Factors: DM, Current or recent (<one month) smoker, HTN, HLP, family history of CAD, obesity. Risk Scores: Score 0 - 3: 2.5% MACE over next 6 weeks - Discharge Home Score 4 - 6: 20.3% MACE over next 6 weeks - Admit for Clinical Observation Score 7 - 10: 72.7% MACE over next 6 weeks - Early Invasive Strategies Allergies: Allergies: Allergies Coded Allergies Type Severity Reaction Last Updated Verified No Known Drug Allergies 03/30/19 No Physical Exam: PE: Constitutional: Well developed, well nourished, no acute distress, non-toxic ap pearance. [] HENT: Normocephalic, atraumatic, bilateral external ears normal, oropharynx moist, no oral exudates, nose normal. [] Eyes: PERRLA, EOMI, conjunctiva normal, no discharge. [] Neck: Normal range of motion, no tenderness, supple, no stridor. [] Cardiovascular:Heart rate regular rhythm, no murmur [] Lungs & Thorax: Bilateral breath sounds clear to auscultation [] Abdomen: Bowel sounds normal, soft, no tenderness, no masses, no pulsatile masses. [] Skin: Warm, dry, no erythema, no rash. [] Back: No tenderness, no CVA tenderness. [] Extremities: No tenderness, no cyanosis, no clubbing, ROM intact, no edema. [] Neurologic: Alert and oriented X 3, normal motor function, normal sensory function, no focal deficits noted. [] Psychologic: Affect normal, judgement normal, mood normal. [] Current Patient Data: Labs: Laboratory Tests Test 05/13/21 14:05 05/13/21 14:16 White Blood Count 8.7 x10^3/uL (4.0-11.0) Red Blood Count 5.37 x10^6/uL (3.50-5.40) Hemoglobin 13.8 g/dL (12.0-15.5) Hematocrit 41.9 % (36.0-47.0) Mean Corpuscular Volume 78 fL (79-100) L Mean Corpuscular Hemoglobin 26 pg (25-35) Mean Corpuscular Hemoglobin Concent 33 g/dL (31-37) Red Cell Distribution Width 14.4 % (11.5-14.5) Platelet Count 221 x10^3/uL (140-400) Neutrophils (%) (Auto) 63 % (31-73) Lymphocytes (%) (Auto) 29 % (24-48) Monocytes (%) (Auto) 5 % (0-9) Eosinophils (%) (Auto) 2 % (0-3) Basophils (%) (Auto) 1 % (0-3) Neutrophils # (Auto) 5.5 x10^3/uL (1.8-7.7) Lymphocytes # (Auto) 2.5 x10^3/uL (1.0-4.8) Monocytes # (Auto) 0.4 x10^3/uL (0.0-1.1) Eosinophils # (Auto) 0.2 x10^3/uL (0.0-0.7) Basophils # (Auto) 0.1 x10^3/uL (0.0-0.2) Sodium Level 137 mmol/L (136-145) Potassium Level 4.6 mmol/L (3.5-5.1) Chloride Level 103 mmol/L (98-107) Carbon Dioxide Level 25 mmol/L (21-32) Anion Gap 9 (6-14) Blood Urea Nitrogen 10 mg/dL (7-20) Creatinine 0.7 mg/dL (0.6-1.0) Estimated GFR (Cockcroft-Gault) 93.2 BUN/Creatinine Ratio 14 (6-20) Glucose Level 145 mg/dL (70-99) H Calcium Level 8.6 mg/dL (8.5-10.1) Total Bilirubin 0.3 mg/dL (0.2-1.0) Aspartate Amino Transferase (AST) 25 U/L (15-37) Alanine Aminotransferase (ALT) 47 U/L (14-59) Alkaline Phosphatase 61 U/L (46-116) Troponin I Quantitative < 0.017 ng/mL (0.000-0.055) Total Protein 7.5 g/dL (6.4-8.2) Albumin 3.8 g/dL (3.4-5.0) Albumin/Globulin Ratio 1.0 (1.0-1.7) POC Urine HCG, Qualitative Hcg negative (Negative) Laboratory Tests 05/13/21 14:05 Laboratory Tests 05/13/21 14:05 Vital Signs: Vital Signs Date Time Temp Pulse Resp B/P (MAP) Pulse Ox O2 Delivery O2 Flow Rate FiO2 05/13/21 13:55 98.1 75 18 177/79 (111) 99 Room Air 98.1 EKG: EKG: [] Sinus rhythm. Rate 72. There is no U wave. No acute ST segment changes. No Q waves. No T wave inversions. Radiology/Procedures: Radiology/Procedures: [] Impression: [facility] [address] [place] [address] IMAGING REPORT Signed PATIENT: JIMENA DOMINGUEZ IACCOUNT: [id number] : 1980 LOCATION: ER AGE: 41 SEX: F EXAM STATUS: REG ER ORD. PHYSICIAN: SHASTA VERAS MD REASON: chest pain PROCEDURE: CHEST AP ONLY AP chest. HISTORY: Chest pain Portable AP view was taken of the chest. There is a prominent epicardial fat pad along the left heart border. Patient's taken a poor inspiration. There are no acute infiltrates. There is no effusion. IMPRESSION: 1. No acute infiltrates. Electronically signed by: Abdifatah Guzman MD (05/13/2021 3:01 PM) [facility] DICTATED and SIGNED BY: ABDIFATAH GUZMAN MD DATE: 05/13/21 [id number] 0 Course & Med Decision Making: Course & Med Decision Making Pertinent Labs and Imaging studies reviewed. (See chart for details) Patient is 41-year-old female with history of smoking, obesity, early family history of UT who presents with exertional substernal chest pressure for the past week. EKG nonischemic. Troponin negative. Chest x-ray without acute process. Labs otherwise noncontributory. HEART score = 4. She has no outpatient follow-up, feel that she would benefit from an admission for further evaluation and restratification of her chest pain. Dragon Disclaimer: Dragon Disclaimer: This electronic medical record was generated, in whole or in part, using a voice recognition dictation system. Departure Departure Impression: Primary Impression: Chest pain Disposition: ADMITTED INPATIENT Admitting Physician: ANSELMO [place]) Condition: STABLE Referrals: NO PCP (PCP) SHASTA VERAS MD May 13, 2021 15:23
[2021-05-13] MEDS ORDERED: oxyCODONE/APAP 5/325 1 TAB TABLET PO PRN (16:45)
[2021-05-13] MEDS ORDERED: ELECTROLYTE (NON-ICU) PROTOCOL. MC PRN (16:45)
[2021-05-13] MEDS ORDERED: ACETAMINOPHEN 325 MG TABLET. PO PRN (16:45)
--- NOTE | 2021-05-13 16:49 | PDOC1 ---
History and Physical Date of Service: DOS: DATE: 05/13/21 TIME: 16:36 Chief Complaint: Problems: (1) Chest pain Chief Complain: Chest pain History of Present Illness: HPI: Patient is a 41-year-old female presented to the emergency room today due to 1 week history of chest pain. 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 She says this is been very stressful for her especially during times they are very rushed. Says she is noticed chest pain during stressful times. Says pain radiates to her back gets better with rest. Mild shortness of breath but she is a tobacco smoker. Denies any sort of past medical history. Not on any daily medications. Notably reports that her mother had an OR in her 40s. When I evaluated her side her chest pain is still present. Denying any sort of dizziness, vision change, headache, shortness breath, abdominal pain, dysuria, joint pain. Past Medical/Surgical History: PMH/PSH: Reports history of UTIs. No daily medications or other medical history Allergies: Allergies: Coded Allergies: No Known Drug Allergies (Unverified , 03/30/19) Family History: Family History: Reviewed patient denies any known family history Social History: Social History: Current half pack per day tobacco smoker. Denies alcohol drug use Current Medications: Current Medications Active Scripts Active Famotidine 20 Mg Tablet 20 Mg PO DAILY ROS: Review of Systems Review of System Unless noted in HPI 14 point review of systems was negative Physical Exam: Vital Signs: Vital Signs Date Time Temp Pulse Resp B/P (MAP) Pulse Ox O2 Delivery O2 Flow Rate FiO2 05/13/21 16:00 60 27 125/60 (81) 97 Room Air 05/13/21 13:55 98.1 98.1 Physcial Exam: GEN: No apparent distress. Alert and oriented HEENT: Normal cephalic, atraumatic, external auditory canals are patent EYES: Extraocular muscles are intact, pupil are equally round and reactive to light and accommodation MUSCULOSKELETAL: Well developed , well nourished, good range of motion ENDOCRINE: No thyromegaly was palpated LYMPHATICS: No cervical chain or axillary nodes were noted HEMATOPOIETIC: No bruising NECK: Supple, no JVD, no thyromegaly was noted LUNGS: Clear to auscultation in all lung rivera without rhonchi or wheezing HEART: RRR, S1, S2 present. Peripheral pulses intact, no obvious murmurs noted ABDOMEN: Soft, nontender. Positive bowel sounds, no organomegaly, normal bowel sounds EXTREMITIES: Without clubbing, cyanosis, or edema. Pedal pulses intact. Negative Homans sign NEUROLOGIC: Normal speech and tone. A&O x 3, moves all extremities, no obvious focal deficits PSYCHIATRIC: Normal affect, normal mood. Stable SKIN: No ulcerations or rashes, good skin turgor, no jaundice VASCULAR: Good capillary refill, neurovascular bundle appears to be intact Labs: Labs: Laboratory Tests Test 05/13/21 14:05 05/13/21 14:16 White Blood Count 8.7 x10^3/uL (4.0-11.0) Red Blood Count 5.37 x10^6/uL (3.50-5.40) Hemoglobin 13.8 g/dL (12.0-15.5) Hematocrit 41.9 % (36.0-47.0) Mean Corpuscular Volume 78 fL (79-100) Mean Corpuscular Hemoglobin 26 pg (25-35) Mean Corpuscular Hemoglobin Concent 33 g/dL (31-37) Red Cell Distribution Width 14.4 % (11.5-14.5) Platelet Count 221 x10^3/uL (140-400) Neutrophils (%) (Auto) 63 % (31-73) Lymphocytes (%) (Auto) 29 % (24-48) Monocytes (%) (Auto) 5 % (0-9) Eosinophils (%) (Auto) 2 % (0-3) Basophils (%) (Auto) 1 % (0-3) Neutrophils # (Auto) 5.5 x10^3/uL (1.8-7.7) Lymphocytes # (Auto) 2.5 x10^3/uL (1.0-4.8) Monocytes # (Auto) 0.4 x10^3/uL (0.0-1.1) Eosinophils # (Auto) 0.2 x10^3/uL (0.0-0.7) Basophils # (Auto) 0.1 x10^3/uL (0.0-0.2) Sodium Level 137 mmol/L (136-145) Potassium Level 4.6 mmol/L (3.5-5.1) Chloride Level 103 mmol/L (98-107) Carbon Dioxide Level 25 mmol/L (21-32) Anion Gap 9 (6-14) Blood Urea Nitrogen 10 mg/dL (7-20) Creatinine 0.7 mg/dL (0.6-1.0) Estimated GFR (Cockcroft-Gault) 93.2 BUN/Creatinine Ratio 14 (6-20) Glucose Level 145 mg/dL (70-99) Calcium Level 8.6 mg/dL (8.5-10.1) Total Bilirubin 0.3 mg/dL (0.2-1.0) Aspartate Amino Transf (AST/SGOT) 25 U/L (15-37) Alanine Aminotransferase (ALT/SGPT) 47 U/L (14-59) Alkaline Phosphatase 61 U/L (46-116) Troponin I Quantitative < 0.017 ng/mL (0.000-0.055) Total Protein 7.5 g/dL (6.4-8.2) Albumin 3.8 g/dL (3.4-5.0) Albumin/Globulin Ratio 1.0 (1.0-1.7) Bedside Urine HCG, Qualitative Hcg negative (Negative) Laboratory Tests Test 05/13/21 14:05 05/13/21 14:16 White Blood Count 8.7 x10^3/uL (4.0-11.0) Red Blood Count 5.37 x10^6/uL (3.50-5.40) Hemoglobin 13.8 g/dL (12.0-15.5) Hematocrit 41.9 % (36.0-47.0) Mean Corpuscular Volume 78 fL (79-100) Mean Corpuscular Hemoglobin 26 pg (25-35) Mean Corpuscular Hemoglobin Concent 33 g/dL (31-37) Red Cell Distribution Width 14.4 % (11.5-14.5) Platelet Count 221 x10^3/uL (140-400) Neutrophils (%) (Auto) 63 % (31-73) Lymphocytes (%) (Auto) 29 % (24-48) Monocytes (%) (Auto) 5 % (0-9) Eosinophils (%) (Auto) 2 % (0-3) Basophils (%) (Auto) 1 % (0-3) Neutrophils # (Auto) 5.5 x10^3/uL (1.8-7.7) Lymphocytes # (Auto) 2.5 x10^3/uL (1.0-4.8) Monocytes # (Auto) 0.4 x10^3/uL (0.0-1.1) Eosinophils # (Auto) 0.2 x10^3/uL (0.0-0.7) Basophils # (Auto) 0.1 x10^3/uL (0.0-0.2) Sodium Level 137 mmol/L (136-145) Potassium Level 4.6 mmol/L (3.5-5.1) Chloride Level 103 mmol/L (98-107) Carbon Dioxide Level 25 mmol/L (21-32) Anion Gap 9 (6-14) Blood Urea Nitrogen 10 mg/dL (7-20) Creatinine 0.7 mg/dL (0.6-1.0) Estimated GFR (Cockcroft-Gault) 93.2 BUN/Creatinine Ratio 14 (6-20) Glucose Level 145 mg/dL (70-99) Calcium Level 8.6 mg/dL (8.5-10.1) Total Bilirubin 0.3 mg/dL (0.2-1.0) Aspartate Amino Transf (AST/SGOT) 25 U/L (15-37) Alanine Aminotransferase (ALT/SGPT) 47 U/L (14-59) Alkaline Phosphatase 61 U/L (46-116) Troponin I Quantitative < 0.017 ng/mL (0.000-0.055) Total Protein 7.5 g/dL (6.4-8.2) Albumin 3.8 g/dL (3.4-5.0) Albumin/Globulin Ratio 1.0 (1.0-1.7) Bedside Urine HCG, Qualitative Hcg negative (Negative) Assessment/Plan Assessment/Plan Unstable angina, anxiety -Patient with 1 week history of ongoing chest pain in setting of starting new stressful job -Presented to emergency room work-up normal as far -Continue to trend troponin -Consult cardiology. Will hold off on ordering an echo or stress test unitl they are able to evaluate her -We will try some as needed Ativan for anxiety -DVT prophylaxis -Cardiac diet for now -Plan of care discussed with bedside RN. Spent approximately 12 minutes providing smoking cessation counseling in this patient. Justifications for Admission Other Justification NYLA GARCIA MD May 13, 2021 16:49
[2021-05-13 17:02] VITALS: BP 123/59
[2021-05-13 17:22] LABS: CHOLESTEROL/HDL RATIO 6.5
[2021-05-13 19:45] VITALS: BP 115/66
[2021-05-13] MEDS: SENNOSIDES/DOCUSATE 8.6/50MG TABLET. PO SCH (21:00)
[2021-05-13] MEDS: oxyCODONE/APAP 5/325 1 TAB TABLET PO PRN (22:55)
[2021-05-13 23:00] VITALS: BP 127/59
--- NOTE | 2021-05-14 01:12 | EKG ---
[facility] [address] [place] [address] Test Date: 2021-05-13 Test Time: 14:00:30 Pat Name: JIMENA DOMINGUEZ Department: Room: [facility] Gender: F [employer]: : 1980 Requested By: SHASTA VERAS Order Number: [id number] Reading MD: Ascencion Wrihgt MD Measurements Intervals [place] Rate: 72 P: DE: QRS: -1 QRSD: 82 T: 31 QT: 392 QTc: 431 Interpretive Statements SR NON-SPECIFIC ST/T CHANGES Electronically Signed On 05-14-2021 8:48:11 CDT by Ascencion Wright MD
[2021-05-14 03:05] VITALS: BP 109/58
[2021-05-14] MEDS: oxyCODONE/APAP 5/325 1 TAB TABLET PO PRN ×2 (03:46→08:51)
[2021-05-14 07:00] VITALS: BP 122/78
[2021-05-14] MEDS: SENNOSIDES/DOCUSATE 8.6/50MG TABLET. PO SCH (08:39)
[2021-05-14] MEDS ORDERED: FAMOTIDINE 20 MG TABLET. PO SCH (09:00)
--- NOTE | 2021-05-14 09:57 | PDOC2 ---
CLARISA BELTRAN SPORTS DEVELOPMENT OFFICER 05/14/21 0957: CARDIAC CONSULT DATE OF CONSULT Date of Consult DATE: 05/14/21 TIME: 09:52 REASON FOR CONSULT Reason for Consult: Chest pain REFERRING PHYSICIAN Referring Physician: Dr. Finn SOURCE Source: Chart review, Patient HISTORY OF PRESENT ILLNESS HISTORY OF PRESENT ILLNESS This is a 41 yo female who presented secondary to week long history of chest pressure. Pain is constant. Is worse with certain movements, deep breathing, and with applying pressure to the central chest. No associated dizziness, diaphoresis, or palpitations. No recent illness or injury. No previous cardiac workup. PAST MEDICAL HISTORY Cardiovascular: No pertinent hx Pulmonary: No pertinent hx Renal/: No pertinent hx Endocrine: No pertinent hx PAST SURGICAL HISTORY Past Surgical History: Other (oophrectomy ) FAMILY HISTORY Family History: Heart Disease SOCIAL HISTORY Smoke: 1 pack per day ALCOHOL: none Drugs: None Lives: with Family CURRENT MEDICATIONS CURRENT MEDICATIONS Current Medications Medications (Trade) Dose Ordered Sig/Joao Route PRN Reason Start Time Stop Time Status Last Admin Dose Admin Oxycodone/ Acetaminophen (Percocet 5/325) 2 tab PRN Q4HRS PRN PO MODERATE PAIN, SEVERE PAIN 05/13/21 16:45 05/14/21 08:51 ALLERGIES ALLERGIES: Coded Allergies: No Known Drug Allergies (Unverified , 03/30/19) ROS Review of System 14 point ROS conducted with pertinent positives noted above in HPI PHYSICAL EXAM General: Alert, Oriented X3, Cooperative, No acute distress HEENT: Atraumatic Lungs: Clear to auscultation, Other (pain with palpation of central chest ) Heart: Regular rate Abdomen: Soft, Other (obese) Extremities: No edema, Normal pulses Skin: No significant lesion Neuro: Normal speech, Sensation intact Psych/Mental Status: Mental status NL, Mood NL MUSCULOSKELETAL: No deformity VITALS/I&O VITALS/I&O: Vital Signs Date Time Temp Pulse Resp B/P (MAP) Pulse Ox O2 Delivery O2 Flow Rate FiO2 05/14/21 08:51 18 Room Air 05/14/21 07:00 98.3 64 122/78 (93) 98 98.3 I & O 05/13/21 05/13/21 05/14/21 15:00 23:00 07:00 Intake Total 300 ml 360 ml Balance 300 ml 360 ml LABS Lab: Laboratory Tests Test 05/13/21 14:05 05/13/21 14:16 05/13/21 16:58 05/13/21 16:59 White Blood Count 8.7 x10^3/uL (4.0-11.0) Red Blood Count 5.37 x10^6/uL (3.50-5.40) Hemoglobin 13.8 g/dL (12.0-15.5) Hematocrit 41.9 % (36.0-47.0) Mean Corpuscular Volume 78 fL (79-100) L Mean Corpuscular Hemoglobin 26 pg (25-35) Mean Corpuscular Hemoglobin Concent 33 g/dL (31-37) Red Cell Distribution Width 14.4 % (11.5-14.5) Platelet Count 221 x10^3/uL (140-400) Neutrophils (%) (Auto) 63 % (31-73) Lymphocytes (%) (Auto) 29 % (24-48) Monocytes (%) (Auto) 5 % (0-9) Eosinophils (%) (Auto) 2 % (0-3) Basophils (%) (Auto) 1 % (0-3) Neutrophils # (Auto) 5.5 x10^3/uL (1.8-7.7) Lymphocytes # (Auto) 2.5 x10^3/uL (1.0-4.8) Monocytes # (Auto) 0.4 x10^3/uL (0.0-1.1) Eosinophils # (Auto) 0.2 x10^3/uL (0.0-0.7) Basophils # (Auto) 0.1 x10^3/uL (0.0-0.2) Sodium Level 137 mmol/L (136-145) Potassium Level 4.6 mmol/L (3.5-5.1) Chloride Level 103 mmol/L (98-107) Carbon Dioxide Level 25 mmol/L (21-32) Anion Gap 9 (6-14) Blood Urea Nitrogen 10 mg/dL (7-20) Creatinine 0.7 mg/dL (0.6-1.0) Estimated GFR (Cockcroft-Gault) 93.2 BUN/Creatinine Ratio 14 (6-20) Glucose Level 145 mg/dL (70-99) H Calcium Level 8.6 mg/dL (8.5-10.1) Total Bilirubin 0.3 mg/dL (0.2-1.0) Aspartate Amino Transferase (AST) 25 U/L (15-37) Alanine Aminotransferase (ALT) 47 U/L (14-59) Alkaline Phosphatase 61 U/L (46-116) Troponin I Quantitative < 0.017 ng/mL (0.000-0.055) < 0.017 ng/mL (0.000-0.055) Total Protein 7.5 g/dL (6.4-8.2) Albumin 3.8 g/dL (3.4-5.0) Albumin/Globulin Ratio 1.0 (1.0-1.7) POC Urine HCG, Qualitative Hcg negative (Negative) Triglycerides Level 143 mg/dL (0-150) Cholesterol Level 203 mg/dL (0-200) H LDL Cholesterol, Calculated 143 mg/dL (0-100) H VLDL Cholesterol, Calculated 29 mg/dL (0-40) Non-HDL Cholesterol Calculated 172 mg/dL (0-129) H HDL Cholesterol 31 mg/dL (40-60) L Cholesterol/HDL Ratio 6.5 Test 05/13/21 19:20 Troponin I Quantitative < 0.017 ng/mL (0.000-0.055) Laboratory Tests 05/13/21 14:05 Laboratory Tests 05/13/21 14:05 ASSESSMENT/PLAN ASSESSMENT/PLAN 1. Chest pain, atypical; AMI ruled out. EKG shows SR with nonspecific ST/T changes 2. Obesity 3. Tobaccoism; discussed/encourage cessation Recommendations Echo to assess LV systolic function Lipids panel Could consider outpatient ischemic evaluation if pain recurrent Supportive care If echo WNL, may discharge from a CV standpoint. NISA RODRIGUEZ MD 05/14/21 1714: CLARISA BELTRAN APRN May 14, 2021 09:57 NISA RODRIGUEZ MD May 14, 2021 17:14
[2021-05-14 10:40] VITALS: BP 137/70
--- NOTE | 2021-05-14 12:13 | PDOC ---
[employer] PROGRESS NOTE Date of Service DOS: DATE: 05/14/21 TIME: 12:04 Chief Complaint Chief Complaint Chest pain Anxiety Tobacco use Obesity History of Present Illness History of Present Illness 05/14 Patient seen and examined at bedside Patient states her chest pain is improved, reproducible with palpation Pt states she has been feeling anxious d/t recent change in work schedule overnight, requested note Charts reviewed Discussed with RN and SW Vitals/I&O Vitals/I&O: Vital Signs Date Time Temp Pulse Resp B/P (MAP) Pulse Ox O2 Delivery O2 Flow Rate FiO2 05/14/21 10:40 98.5 64 18 137/70 (92) 99 Room Air 98.5 I & O 05/13/21 05/13/21 05/14/21 15:00 23:00 07:00 Intake Total 300 ml 360 ml Balance 300 ml 360 ml Physical Exam General: Alert, Oriented X3, Cooperative, No acute distress Heart: Regular rate, Normal S1, Normal S2 Lungs: Clear Abdomen: Normal bowel sounds, Soft, No tenderness Extremities: No clubbing, No cyanosis Skin: No rashes, No breakdown Labs Labs: Laboratory Tests Test 05/13/21 14:05 05/13/21 14:16 05/13/21 16:58 05/13/21 16:59 White Blood Count 8.7 x10^3/uL (4.0-11.0) Red Blood Count 5.37 x10^6/uL (3.50-5.40) Hemoglobin 13.8 g/dL (12.0-15.5) Hematocrit 41.9 % (36.0-47.0) Mean Corpuscular Volume 78 fL (79-100) Mean Corpuscular Hemoglobin 26 pg (25-35) Mean Corpuscular Hemoglobin Concent 33 g/dL (31-37) Red Cell Distribution Width 14.4 % (11.5-14.5) Platelet Count 221 x10^3/uL (140-400) Neutrophils (%) (Auto) 63 % (31-73) Lymphocytes (%) (Auto) 29 % (24-48) Monocytes (%) (Auto) 5 % (0-9) Eosinophils (%) (Auto) 2 % (0-3) Basophils (%) (Auto) 1 % (0-3) Neutrophils # (Auto) 5.5 x10^3/uL (1.8-7.7) Lymphocytes # (Auto) 2.5 x10^3/uL (1.0-4.8) Monocytes # (Auto) 0.4 x10^3/uL (0.0-1.1) Eosinophils # (Auto) 0.2 x10^3/uL (0.0-0.7) Basophils # (Auto) 0.1 x10^3/uL (0.0-0.2) Sodium Level 137 mmol/L (136-145) Potassium Level 4.6 mmol/L (3.5-5.1) Chloride Level 103 mmol/L (98-107) Carbon Dioxide Level 25 mmol/L (21-32) Anion Gap 9 (6-14) Blood Urea Nitrogen 10 mg/dL (7-20) Creatinine 0.7 mg/dL (0.6-1.0) Estimated GFR (Cockcroft-Gault) 93.2 BUN/Creatinine Ratio 14 (6-20) Glucose Level 145 mg/dL (70-99) Calcium Level 8.6 mg/dL (8.5-10.1) Total Bilirubin 0.3 mg/dL (0.2-1.0) Aspartate Amino Transf (AST/SGOT) 25 U/L (15-37) Alanine Aminotransferase (ALT/SGPT) 47 U/L (14-59) Alkaline Phosphatase 61 U/L (46-116) Troponin I Quantitative < 0.017 ng/mL (0.000-0.055) < 0.017 ng/mL (0.000-0.055) Total Protein 7.5 g/dL (6.4-8.2) Albumin 3.8 g/dL (3.4-5.0) Albumin/Globulin Ratio 1.0 (1.0-1.7) Bedside Urine HCG, Qualitative Hcg negative (Negative) Triglycerides Level 143 mg/dL (0-150) Cholesterol Level 203 mg/dL (0-200) LDL Cholesterol, Calculated 143 mg/dL (0-100) VLDL Cholesterol, Calculated 29 mg/dL (0-40) Non-HDL Cholesterol Calculated 172 mg/dL (0-129) HDL Cholesterol 31 mg/dL (40-60) Cholesterol/HDL Ratio 6.5 Test 05/13/21 19:20 Troponin I Quantitative < 0.017 ng/mL (0.000-0.055) Review of Systems Review of Systems: Pt acknowledges feelings of anxiousness ROS otherwise negative Assessment and Plan Assessmemt and Plan Problems Medical Problems: (1) Chest pain Status: Acute Chest pain Anxiety Tobacco use Obesity Plan Cardiology input appreciated Possible discharge today, per cardiology approval Added Medrol Dose Pack Added Prozac Rx note for work and schedule restriction provided Continue DVT prophylaxis Restart home meds as indicated PT/OT Full code Disposition: Possible discharge today, as noted above Comment Review of Relevant I have reviewed the following items danyel (where applicable) has been applied. Medications: Current Medications Medications (Trade) Dose Ordered Sig/Joao Route PRN Reason Start Time Stop Time Status Last Admin Dose Admin Oxycodone/ Acetaminophen (Percocet 5/325) 2 tab PRN Q4HRS PRN PO MODERATE PAIN, SEVERE PAIN 05/13/21 16:45 05/14/21 08:51 Justifications for Admission Other Justification CARLIN MERINO III DO May 14, 2021 12:13
[2021-05-14] MEDS ORDERED: FLUO20CA16 PO (12:54)
--- NOTE | 2021-05-14 13:03 | DS ---
DATE OF DISCHARGE: 05/14/2021 ADMISSION DIAGNOSIS: Chest pain. DISCHARGE DIAGNOSES: Probable atypical chest pain, anxiety, tobacco abuse, obesity. CONSULTATIONS: Cardiology. PROCEDURES: None. HOSPITAL COURSE: The patient is a pleasant, middle-aged female who presented with chest pain. We admitted the patient, did serial enzymes, serial EKGs. We consulted Cardiology. So far as of this morning, her workup is negative. Cardiology has seen her and requested to get an echocardiogram, but clinically she is doing well and wants to go home. She admits she is under a lot of stress because her job at [employer] wants her to work nightshifts beyond midnight. She also wants something for anxiety and I gave her a prescription for Prozac 20 mg a day and of note, telling her boss to please not work her past 11:00. We will go ahead and discharge if okay with Cardiology this afternoon. DISPOSITION: Home. ACTIVITY: As tolerated. DIET: Low-sodium. MEDICATIONS: Prozac 20 mg a day and Pepcid 20 mg p.o. b.i.d. TOTAL TIME: [address]: Cali TID: [id number]
--- NOTE | 2021-05-14 14:14 | CARD ---
MR#: [id number] Date of Study: 05/14/2021 Ordering Physician: CLARIAS BELTRAN, Referring Physician: CLARISA BELTRAN, Page: Luke Arthur [facility] APPROVED REPORT EXAM: Two-dimensional and M-mode echocardiogram with Doppler and color Doppler. Other Information Quality : FairHR: 60bpm Rhythm : NSRTechnically limited study due to body habitus. INDICATION Chest Pain RISK FACTORS Obesity Smoking 2D DIMENSIONS Left Atrium(2D)3.8 (1.6-4.0cm)IVSd1.1 (0.7-1.1cm) Aortic Root(2D)3.2 (2.0-3.7cm)LVDd4.5 (3.9-5.9cm) LVOT Diameter2.0 (1.8-2.4cm)PWd1.1 (0.7-1.1cm) LVDs3.0 (2.5-4.0cm)FS (%) 34.0 % SV58.3 mlLVEF(%)63.1 (>50%) Aortic Valve AoV Peak Liam.133.8cm/sAoV VTI27.9cm AO Peak GR.7.2mmHgLVOT Peak Liam.112.4cm/s LVOT VTI 23.93cmAO Mean GR.4mmHg ADARSH (VMAX)1.85ax4DNC (VTI)2.57cm2 AI P 1/2 Vrpi133hm Mitral Valve MV E Pxpnjopc62.9cm/sMV DECEL [id number] MV A Nqotvrqj43.2cm/sMV CRG48uw E/A Ratio1.7MVA (PHT)3.70cm2 TDI E/Lateral E'6.9E/Medial E'9.8 Pulmonary Valve PV Peak Lijbutfw06.6cm/sPV Peak Grad.4mmHg Tricuspid Valve TR P. Ltjsnacn292fa/sTR Peak Gr.23mmHg Pulmonary Vein S1 Ljccfzex28.2cm/sD2 Cwykgqqr07.2cm/s LEFT VENTRICLE The left ventricle is normal size. There is normal left ventricular wall thickness. The left ventricu lar systolic function is normal and the ejection fraction is within normal range. EF 55% There is nor mal LV segmental wall motion. The left ventricular diastolic function and filling is normal for age. No left ventricle thrombus noted on this study. There is no ventricular septal defect visualized. The re is no left ventricular aneurysm. There is no mass noted in the left ventricle. RIGHT VENTRICLE The right ventricle is normal size. There is normal right ventricular wall thickness. The right ventr icular systolic function is normal. ATRIA The left atrium size is normal. The right atrium size is normal. The interatrial septum is intact wit h no evidence for an atrial septal defect or patent foramen ovale as noted on 2-D or Doppler imaging. AORTIC VALVE The aortic valve is normal in structure and function. Doppler and Color Flow revealed trace aortic re gurgitation. There is no significant aortic valvular stenosis. There is no aortic valvular vegetation . MITRAL VALVE The mitral valve is normal in structure and function. There is no evidence of mitral valve prolapse. There is no mitral valve stenosis. Doppler and Color-flow revealed trace mitral regurgitation. TRICUSPID VALVE The tricuspid valve is normal in structure and function. Doppler and Color Flow revealed trace tricus pid regurgitation. There is no tricuspid valve prolapse or vegetation. There is no tricuspid valve st enosis. PULMONIC VALVE Doppler and Color Flow revealed no pulmonic valvular regurgitation. There is no pulmonic valvular mykel nosis. GREAT VESSELS The aortic root is normal in size. The ascending aorta is normal in size. The IVC is normal in size a nd collapses >50% with inspiration. PERICARDIAL EFFUSION There is no pleural effusion. There is no evidence of significant pericardial effusion. Critical Notification Critical Value: No <Conclusion> The left ventricular systolic function is normal and the ejection fraction is within normal range. EF 55% There is normal LV segmental wall motion. Signed by : Ascencion Wright, Electronically Approved : 05/14/2021 14:14:20
[2021-05-14 14:18] VITALS: BP 115/54
--- NOTE | 2021-05-14 15:23 | NUR ---
SS following for discharge planning. SS reviewed pt chart and discussed with pt RN. Pt is from home and is currently on room air. Cardiology following today. Self pay. Discharge order on the chart for home with self care.
--- NOTE | 2021-05-14 16:15 | NUR ---
Discharge Note: JIMENA DOMINGUEZ I6 [facility] Discharge instructions and discharge home medications reviewed with Patient and a copy given. All questions have been answered and understanding verbalized. The following instructions and handouts were given: Prozac capsules, chest pain Discontinued lines and drains: Peripheral IV intact. Patient discharged to Home or Self Care with Self via Wheelchair
== END 2021-05-14 16:00 | disposition home or self-care (01) | DRG 313 ==
LOC: ER 13:47 → 6 SOUTH 15:34
PROVIDERS: ADMIT Student in an Organized Health Care Education/Training Program; ATTEND Student in an Organized Health Care Education/Training Program
DX: R07.89 Other chest pain (principal); E66.9 Obesity, unspecified; Z68.32 Body mass index [BMI] 32.0-32.9, adult; F17.210 Nicotine dependence, cigarettes, uncomplicated; F41.9 Anxiety disorder, unspecified; Z79.899 Other long term (current) drug therapy; Z82.49 Family history of ischemic heart disease and other diseases of the circulatory system; Z87.440 Personal history of urinary (tract) infections
CPT/HCPCS: 36415; 71045; 80053; 80061; 81025; 84484; 85025; 93005; 93306; 99285-25; G0378